=== PATIENT | female | born 1955 | race Caucasian/White ===

== ENCOUNTER 2019-05-31 17:20 | Emergency (ER) | payer BC ==
[~2019-05-31] VITALS: Ht 162.6 cm; Wt 52.2 kg
--- NOTE | 2019-05-31 18:04 | NUR ---
PT IS IN ROOM #1B. DR HOLLAND EVALUATED THE PT.
--- NOTE | 2019-05-31 19:13 | NUR ---
PT WAS D/C'd TO HOME. D/C INSTRUCTIONS GIVEN TO THE PT AND TO HER RELATIVES.
[2019-05-31 19:14] VITALS: BP 136/84
== END 2019-05-31 19:15 | disposition home or self-care (01) ==
LOC: ER 17:23
DX: S22.32XA Fracture of one rib, left side, initial encounter for closed fracture (principal); M24.812 Other specific joint derangements of left shoulder, not elsewhere classified; E03.9 Hypothyroidism, unspecified; W18.09XA Striking against other object with subsequent fall, initial encounter; Y93.73 Activity, racquet and hand sports; Y92.89 Other specified places as the place of occurrence of the external cause; Y99.8 Other external cause status
CPT/HCPCS: 71101; 73030; 73060; A4663